=== PATIENT | male | born 1955 | race Two or more races ===

== ENCOUNTER 2017-06-22 05:43 | Emergency (ER) | payer SELFPAY ==
[~2017-06-22] VITALS: Ht 172.7 cm; Wt 80.7 kg
[2017-06-22 05:56] VITALS: BP 138/93
== END 2017-06-22 06:22 | disposition home or self-care (01) ==
LOC: ER 05:50
DX: L30.9 Dermatitis, unspecified (principal)
CPT/HCPCS: 99283; A4606; Z7610

== ENCOUNTER 2024-03-11 02:25 | Emergency (ER) | payer MEDICARE, OTHER ==
[~2024-03-11] VITALS: Ht 182.9 cm; Wt 86.2 kg
[2024-03-11 03:30] VITALS: TEMP 98.5
[2024-03-11] MEDS ORDERED: TRIA15OI2 TP (04:39)
[2024-03-11 05:16] VITALS: BP 142/79; O2SAT 99
== END 2024-03-11 05:17 | disposition home or self-care (01) ==
LOC: ER 02:27
DX: R21 Rash and other nonspecific skin eruption (principal); Z60.2 Problems related to living alone

== ENCOUNTER 2025-09-19 00:04 | Emergency (ER) | payer MEDICARE, OTHER ==
[~2025-09-19] VITALS: Ht 172.7 cm; Wt 63.5 kg
[~2025-09-19 00:04] MED LIST: TRIA15OI2 TP
[2025-09-19 00:39] VITALS: TEMP 98.5
[2025-09-19] MEDS ORDERED: MORPHINE SULFATE INJ 4 MG/ML DISP.SYRIN ONE (00:57)
[2025-09-19] MEDS ORDERED: ONDANSETRON HCL/PF 4 MG/2 ML VIAL ONE (00:57)
[2025-09-19] MEDS ORDERED: hydrALAZINE HCL IV 20 MG VIAL ONE (00:57)
[2025-09-19 01:09] LABS: PLATELET COUNT (AUTO) 341 K/uL (150-450); RED BLOOD CELL COUNT(AUTO) 4.18 MIL/uL (4.5-6.0); RED CELL DISTRIBUTION WIDTH 13.3 % (11.5-15.0); WHITE BLOOD COUNT (AUTO) 6.7 K/uL (4.3-11.0)
[2025-09-19 01:18] VITALS: BP 144/99; O2SAT 95
[2025-09-19] MEDS: hydrALAZINE HCL IV 20 MG VIAL IV ONE (01:18)
[2025-09-19] MEDS: ONDANSETRON HCL/PF 4 MG/2 ML VIAL IV ONE (01:18)
[2025-09-19] MEDS: MORPHINE SULFATE INJ 2 MG/ML DISP.SYRIN IV ONE (01:18)
[2025-09-19 01:19] LABS: INR 0.94 (0.91-1.10)
[2025-09-19] MEDS ORDERED: CT SWABBABLE VALVE TRANS SET 1 EA INFUS.SET MC ONE (01:19)
[2025-09-19] MEDS ORDERED: IOHEXOL-350 100 ML VIAL IV ONE (01:19)
[2025-09-19 01:28] LABS: CALCIUM, SERUM 9.1 mg/dL (8.5-10.1); CREATININE 2.0 mg/dL (0.6-1.3); SODIUM SERUM 143 mmol/L (136-145); UREA NITROGEN, BLOOD 20 mg/dL (7-18)
[2025-09-19 01:43] LABS: ASPARTATE AMINOTRANSFERASE 38 U/L (15-37); TOTAL PROTEIN, SERUM 7.6 g/dL (6.4-8.2)
== END 2025-09-19 02:14 | disposition left against medical advice (07) ==
LOC: ER 00:07
DX: R07.89 Other chest pain (principal); R06.02 Shortness of breath; R51.9 Headache, unspecified; Z85.830 Personal history of malignant neoplasm of bone
CPT/HCPCS: 99284; 96374; 96375; 93005; 85025; 80048; 80076; 36415; 84484; 85730; J0360; J2270; J2405; Q9967